=== PATIENT | male | born 1935 | race Caucasian/White ===

== ENCOUNTER 2016-03-06 09:42 | Outpatient (CLI) ==
[2015-01-21 15:44] VITALS: BMI 29.8
[2016-03-06 12:35] LABS: BASOPHILS # (AUTO) 0.1 K/uL (0-0.2); BASOPHILS % (AUTO) 0.5 % (0.0-3.0); EOSINOPHILS # (AUTO) 0.5 K/ul (0.0-0.7); EOSINOPHILS % (AUTO) 4.1 % (0.0-7.0); HEMATOCRIT 29.3 % (42.0-52.0); HEMOGLOBIN 9.2 g/dl (14.0-18.0); IMMATURE GRANULOCYTE % (AUTO) 0.3 % (0.0-5.0); LYMPHOCYTES # (AUTO) 1.7 K/uL (0.60-3.4); LYMPHOCYTES % (AUTO) 15.1 (10.0-50.0); MEAN CORPUSCULAR HEMOGLOBIN 28.6 pg (27.0-31.0); MEAN CORPUSCULAR HGB CONC 31.4 (31.8-35.4); MONOCYTES # (AUTO) 0.6 K/uL (0.4-2.0); MONOCYTES % (AUTO) 4.8 (0-10); NEUTROPHILS # (AUTO) 8.6 K/ul (2.0-6.9); NEUTROPHILS % (AUTO) 75.2; PLATELET COUNT 348 10^3/uL (140-440); RED BLOOD COUNT 3.22 10^6/ul (4.70-6.10); WHITE BLOOD COUNT 11.43 K/ul (4.2-10.2)
[2016-03-06 12:50] LABS: ALBUMIN 3.3 g/dL (3.4-5.0); ALBUMIN/GLOBULIN RATIO 0.8; ANION GAP 15.1; BILIRUBIN,TOTAL 0.34 mg/dL (0.00-1.20); BUN/CREATININE RATIO 14.74; CALCIUM 9.3 mg/dL (8.2-10.2); CHOL/HDL RATIO 4.5 (4.5-6.4); CREATININE 1.56 mg/dL (0.60-1.10); POTASSIUM 5.1 mmol/L (3.5-5.1); TOTAL PROTEIN 7.4 g/dL (5.8-8.1)
[2016-03-06 12:52] LABS: BILIRUBIN,URINE Negative (NEGATIVE); KETONES,URINE Negative (NEGATIVE); LEUKOCYTE ESTERASE ,URINE Negative (NEGATIVE); NITRITE,URINE Positive (NEGATIVE); PROTEIN,URINE Negative (NEGATIVE); URINE, BLOOD Negative (NEGATIVE)
[2016-03-06 12:53] LABS: ADD URINE MICROSCOPIC YES
[2016-03-06 12:57] LABS: BACTERIA,URINE 1+ (NOT PRESENT)
== END 2016-03-06 09:43 | disposition home or self-care (01) ==
LOC: LAB 09:42
PROVIDERS: ATTEND General Practice
DX: I10 Essential (primary) hypertension (principal); M54.5 Low back pain; E78.5 Hyperlipidemia, unspecified; N18.9 Chronic kidney disease, unspecified; Z79.899 Other long term (current) drug therapy
CPT/HCPCS: 36415; 80053; 80061; 81001; 85025; 87086; 87186

== ENCOUNTER 2016-03-15 08:46 | Outpatient (CLI) ==
[2015-01-21 15:44] VITALS: BMI 29.8
[2016-03-15 14:45] LABS: BILIRUBIN,URINE Negative (NEGATIVE); KETONES,URINE Negative (NEGATIVE); LEUKOCYTE ESTERASE ,URINE Negative (NEGATIVE); NITRITE,URINE Negative (NEGATIVE); PROTEIN,URINE Negative (NEGATIVE); URINE, BLOOD Negative (NEGATIVE)
[2016-03-15 14:46] LABS: ADD URINE MICROSCOPIC NO
== END 2016-03-15 08:47 | disposition home or self-care (01) ==
LOC: LAB 08:46
PROVIDERS: ATTEND General Practice
DX: N39.0 Urinary tract infection, site not specified (principal)
CPT/HCPCS: 81001

== ENCOUNTER 2016-07-17 11:50 | Outpatient (CLI) | payer OTHER ==
[2015-01-21 15:44] VITALS: BMI 29.8
[2016-07-17 12:38] LABS: BASOPHILS # (AUTO) 0.1 K/uL (0-0.2); BASOPHILS % (AUTO) 0.4 % (0.0-3.0); EOSINOPHILS # (AUTO) 0.3 K/ul (0.0-0.7); EOSINOPHILS % (AUTO) 2.3 % (0.0-7.0); HEMATOCRIT 30.4 % (42.0-52.0); HEMOGLOBIN 9.6 g/dl (14.0-18.0); IMMATURE GRANULOCYTE % (AUTO) 0.2 % (0.0-5.0); LYMPHOCYTES # (AUTO) 2.4 K/uL (0.60-3.4); LYMPHOCYTES % (AUTO) 16.9 (10.0-50.0); MEAN CORPUSCULAR HEMOGLOBIN 25.1 pg (27.0-31.0); MEAN CORPUSCULAR HGB CONC 31.6 (31.8-35.4); MEAN CORPUSCULAR VOLUME 79.6 fl (80.0-94.0); MONOCYTES # (AUTO) 0.8 K/uL (0.4-2.0); MONOCYTES % (AUTO) 5.3 (0-10); NEUTROPHILS # (AUTO) 10.6 K/ul (2.0-6.9); NEUTROPHILS % (AUTO) 74.9; PLATELET COUNT 273 10^3/uL (140-440); RED BLOOD COUNT 3.82 10^6/ul (4.70-6.10); WHITE BLOOD COUNT 14.21 K/ul (4.2-10.2)
[2016-07-17 12:42] LABS: BILIRUBIN,URINE Negative (NEGATIVE); KETONES,URINE Negative (NEGATIVE); LEUKOCYTE ESTERASE ,URINE Negative (NEGATIVE); NITRITE,URINE Negative (NEGATIVE); PH,URINE 7.5 (5-9); PROTEIN,URINE Negative (NEGATIVE); URINE, BLOOD Negative (NEGATIVE)
[2016-07-17 12:52] LABS: ADD URINE MICROSCOPIC NO
[2016-07-17 13:02] LABS: ALBUMIN 3.8 g/dL (3.4-5.0); ALBUMIN/GLOBULIN RATIO 0.86; ANION GAP 13.6; BILIRUBIN,TOTAL 0.59 mg/dL (0.00-1.20); BUN/CREATININE RATIO 10.73; CALCIUM 9.4 mg/dL (8.2-10.2); CHOL/HDL RATIO 4.6 (4.5-6.4); CREATININE 2.05 mg/dL (0.60-1.10); POTASSIUM 4.6 mmol/L (3.5-5.1); TOTAL PROTEIN 8.2 g/dL (5.8-8.1)
== END 2016-07-17 11:51 | disposition home or self-care (01) ==
LOC: LAB 11:50
PROVIDERS: ATTEND General Practice
DX: E78.5 Hyperlipidemia, unspecified (principal); I10 Essential (primary) hypertension; N18.9 Chronic kidney disease, unspecified; Z79.899 Other long term (current) drug therapy
CPT/HCPCS: 36415; 80053; 80061; 81001; 85025

== ENCOUNTER 2016-08-15 14:49 | Outpatient (RCR) ==
[2015-01-21 15:44] VITALS: BMI 29.8
--- NOTE | 2016-08-15 16:42 | OUTEVAL ---
Date of Service:08/15/16 SUBJECTIVE:Patient reports having difficulty walking. States his has numbness in his feet and as soon as he starts walking, the numbness spreads into his legs and up to his waist. States he has fallen many times at home. He feels that a power mobility device would help him get around at home and make him safer. Reports bilateral shoulder pain and weakness. States he would not be able to propel a manual wheelchair. OBJECTIVE: Range of Motion: UE's: bilateral shoulder abduction 85 degrees, flexion 105 degrees, IR 75 degrees, ER 70 degrees. Elbows 125 degrees flexion, full extension. Wrist WFL' s. Demonstrates full hand and finger AROM. LE's: Right LE hip flexion to 100 degrees, IR to neutral, ER 25 degrees, all else WFL's. Left hip flexion to 110 degrees, IR to neutral, ER 30 degrees, all else WFL's. Right knee -10 degrees from full extension to 100 degrees flexion, Left knee full extension to 105 degrees flexion. Bilateral ankle ROM WFL's. Muscle Strength: Bilateral shoulder strength abduction, ER, flexion 4-/5, IR 4/5, extension and adduction 4+/5. Elbows 4/5, wrist 4-/5. Right LE hip generally 3+ to 4-/5. knee 4-/5, ankle 4-/5. Left LE generally 4/ 5 throughout. Trunk strength is good. Balance: Sitting static and dynamic balance is good. Standing static balance Fair +, dynamic balance Fair -. Sensation: Currently, patient reports numbness in the great toe of both feet. Reports all else currently intact. Gait: Patient ambulates with a cane in department. He demonstrates an unsteady , unsafe gait. Demonstrates inconsistent foot clearance and decreased hip and knee flexion during swing phase. The farther he walks, the more forward flexed his posture becomes. He must sit down to get relief of numbness in his legs after ambulating 20-30 feet. He requires at least CGA to minimal assistance for safety. ASSESSMENT: Mr. Goodman presents to therapy for evaluation of muscle strength and ROM. He demonstrates generalized weakness in his UE and LE's. He reports current numbness in the great toe of both feet and reports this numbness progresses throughout his LE's to his waist with any standing or walking. He and his report he has had several falls inside and outside his home. He presents to be at a high risk for falls. He is a good candidate for a power mobility device to improve his independence and safety in his home. PLAN: No further therapy at this time. Recommend Power Mobility Device for safety in the home. SHAY
== END 2016-09-09 ==
PROVIDERS: ATTEND General Practice
DX: R20.0 Anesthesia of skin (principal); G57.91 Unspecified mononeuropathy of right lower limb; M54.5 Low back pain; M50.90 Cervical disc disorder, unspecified, unspecified cervical region

== ENCOUNTER 2016-10-29 16:56 | Emergency (ER) ==
[2016-10-29 17:06] VITALS: BP 137/68; TEMP 98.3; BMI 31.5
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
--- NOTE | 2016-10-29 18:08 | CT ---
CT cervical spine without contrast HISTORY: Fall with injury and pain TECHNIQUE: CT of the cervical spine with multiplanar reformations. FINDINGS: Reformatted images demonstrate normal alignment with preservation of vertebral body height . Mild multilevel endplate spondylosis. No fracture seen on the axial or reformatted images. No acut e surrounding soft tissue abnormalitites. Lung apices are clear. IMPRESSION: No acute findings in the cervical spine.
== END 2016-10-29 18:48 | disposition home or self-care (01) ==
LOC: ED 16:56
DX: S16.1XXA Strain of muscle, fascia and tendon at neck level, initial encounter (principal); S70.02XA Contusion of left hip, initial encounter; V00.811A Fall from moving wheelchair (powered), initial encounter
CPT/HCPCS: 99283

== ENCOUNTER → 2016-12-17 | Outpatient (POV) ==
[2016-11-07 11:43] VITALS: BMI 31.7
== END ==
LOC: OUTPT 00:01
PROVIDERS: ATTEND Otolaryngology
DX: H91.90 Unspecified hearing loss, unspecified ear (principal)
CPT/HCPCS: 92557; 92567

== ENCOUNTER 2016-12-26 06:57 | Day surgery (SDC) ==
[2016-11-07 11:43] VITALS: BMI 31.7
[2016-12-26] MEDS: CYCLOGYL 2% OPTH OP PRN ×3 (07:40→07:50)
[2016-12-26] MEDS: OCUFEN 0.03% OPTH SOL OP PRN ×3 (07:40→08:10)
[2016-12-26] MEDS: AK-DILATE 10% OPTH SOL OP PRN ×3 (07:40→07:50)
[2016-12-26] MEDS: TETRACAINE 0.5% UNIT-DOSE OP PRN ×3 (07:40→08:10)
[2016-12-26] MEDS ORDERED: VERSED ONE (08:45)
[2016-12-26 14:30] VITALS: BP 126/68; TEMP 97.6
--- NOTE | 2016-12-27 10:14 | OP ---
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 PHACO TIME 82.2 SECONDS AT 7% POWER. LENS MODEL TECNIS [id number]. DIOPTER +23D. TECHNIQUE: CLEAR CORNEA. ANESTHESIA: TOPICAL ANESTHESIA W/ANESTHESIA MONITORING. OPERATIVE REPORT: Topical anesthesia consisting of Tetracaine was applied to the cornea and Xylocaine Methyl Paraben free of MFP was injected intracamerally into the anterior chamber. The patient was then brought into the operating room , prepped and draped in the usual ophthalmic manner. A lid speculum was placed and the operating microscope was used. A paracentesis was made at the 3 o' clock position. A clear corneal incision was made just out to the limbus. The anterior chamber was entered just inside the clear cornea. Viscoelastic was injected into the anterior chamber. A capsulotomy was performed with a bent # 27 gauge needle. Phacoemulsification was then performed in the posterior chamber. After completion of the phacoemulsification, residual cortical material was aspirated with the irrigation-aspiration system. The posterior capsule was polished. Viscoelastic was injected into the anterior and posterior chambers to inflate the capsular bag. Lens were placed via an Unfolder system and stabilized in the bag. Viscoelastic was removed from the anterior chamber. The wound was checked for any leakage. The four sponges were removed from the fornix. Topical antibiotic steroid and nonsteroidal drops were also applied to the cornea. A Bond shield was applied. The patient left the operating room in good condition without any complications. INTRAOPERATIVE MEDICATIONS: Xylocaine Methyl Paraben Free MPF MTDD
== END 2016-12-26 10:00 | disposition home or self-care (01) ==
LOC: SURG 06:57
PROVIDERS: ATTEND Ophthalmology
DX: H25.012 Cortical age-related cataract, left eye (principal); H25.13 Age-related nuclear cataract, bilateral; N40.0 Benign prostatic hyperplasia without lower urinary tract symptoms; Z79.899 Other long term (current) drug therapy

== ENCOUNTER 2017-01-20 06:44 | Day surgery (SDC) ==
[2016-11-07 11:43] VITALS: BMI 31.7
[2017-01-20] MEDS ORDERED: KETOROLAC 0.5% OPTH SOL OP PRN (07:05)
[2017-01-20] MEDS ORDERED: CYCLOGYL 2% OPTH OP PRN (07:05)
[2017-01-20] MEDS ORDERED: VOLTAREN 0.1% OPTH SOL OP PRN (07:05)
[2017-01-20 07:27] LABS: BILIRUBIN,URINE 1+ (NEGATIVE); KETONES,URINE Negative (NEGATIVE); LEUKOCYTE ESTERASE ,URINE 1+ (NEGATIVE); NITRITE,URINE Negative (NEGATIVE); PROTEIN,URINE Negative (NEGATIVE); URINE, BLOOD Negative (NEGATIVE)
[2017-01-20 07:29] LABS: ADD URINE MICROSCOPIC YES
[2017-01-20] MEDS ORDERED: CYCLOGYL 2% OPTH OP ONE ×3 (07:40→07:50)
[2017-01-20] MEDS: TETRACAINE 0.5% UNIT-DOSE OP PRN ×3 (07:40→08:10)
[2017-01-20] MEDS: AK-DILATE 10% OPTH SOL OP PRN ×3 (07:40→07:50)
[2017-01-20] MEDS: OCUFEN 0.03% OPTH SOL OP PRN ×3 (07:40→08:10)
[2017-01-20 07:41] LABS: BACTERIA,URINE 1+ (NOT PRESENT)
[2017-01-20 07:58] LABS: ALBUMIN 3.5 g/dL (3.4-5.0); ANION GAP 13.2; BILIRUBIN,TOTAL 0.44 mg/dL (0.00-1.20); BUN/CREATININE RATIO 15.5; CREATININE 1.87 mg/dL (0.60-1.10); POTASSIUM 5.2 mmol/L (3.5-5.1); URIC ACID 5.5 mg/dL (2.6-7.2)
[2017-01-20] MEDS ORDERED: VERSED ONE (09:25)
[2017-01-20 09:42] VITALS: BP 142/73
[2017-01-20] MEDS: DIAMOX PO STA ×2 (10:00→10:10)
[2017-01-20] MEDS ORDERED: DIAMOX ONE (10:10)
--- NOTE | 2017-01-20 13:24 | OP ---
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 POSTOPERATIVE DIAGNOSIS: SAME. COMPLEX CATARACT EXTRACTION. OPERATION PHACOEMULSIFICATION ASPIRATION OF CATARACT RIGHT EYE. PLACEMENT OF POSTERIOR CHAMBER LENS. PHACO TIME 0:52.3 SECONDS AT 5% POWER. LENS MODEL MUKESH [id number]. DIOPTER +22.5D. TECHNIQUE: CLEAR CORNEA. ANESTHESIA: TOPICAL ANESTHESIA W/ANESTHESIA MONITORING. OPERATIVE REPORT: Topical anesthesia consisting of Tetracaine was applied to the cornea and Xylocaine Methyl Paraben free of MFP was injected intracamerally into the anterior chamber. The patient was then brought into the operating room , prepped and draped in the usual ophthalmic manner. A lid speculum was placed and the operating microscope was used. A paracentesis was made at the 3 o' clock position. A clear corneal incision was made just out to the limbus. The anterior chamber was entered just inside the clear cornea. Viscoelastic was injected into the anterior chamber. A capsulotomy was performed with a bent # 27 gauge needle. Phacoemulsification was then performed in the posterior chamber. After completion of the phacoemulsification, residual cortical material was aspirated with the irrigation-aspiration system. The posterior capsule was polished. Viscoelastic was injected into the anterior and posterior chambers to inflate the capsular bag. Lens were placed via an Unfolder system and stabilized in the bag. Viscoelastic was removed from the anterior chamber. The wound was checked for any leakage. The four sponges were removed from the fornix. Topical antibiotic steroid and nonsteroidal drops were also applied to the cornea. A Bond shield was applied. The patient left the operating room in good condition without any complications. INTRAOPERATIVE MEDICATIONS: Xylocaine Methyl Paraben Free MPF MTDD
[2017-01-21 08:50] LABS: HEMATOCRIT 39.7 % (42.0-52.0); HEMOGLOBIN 12.2 g/dl (14.0-18.0); MEAN CORPUSCULAR HEMOGLOBIN 29.5 pg (27.0-31.0); MEAN CORPUSCULAR HGB CONC 30.7 (31.8-35.4); MEAN CORPUSCULAR VOLUME 96.1 fl (80.0-94.0); RED BLOOD COUNT 4.13 10^6/ul (4.70-6.10); WHITE BLOOD COUNT 8.16 K/ul (4.2-10.2)
[2017-01-21 09:37] LABS: URINE CREATININE 281.6 mg/dL (Not Estab.); URINE MALB/CR RATIO 5.6 mg/g creat (0.0-30.0)
== END 2017-01-20 10:05 | disposition home or self-care (01) ==
LOC: SURG 06:44
PROVIDERS: ATTEND Ophthalmology
DX: H25.11 Age-related nuclear cataract, right eye (principal); H25.011 Cortical age-related cataract, right eye; N18.3 Chronic kidney disease, stage 3 (moderate); Z96.1 Presence of intraocular lens; Z79.899 Other long term (current) drug therapy
CPT/HCPCS: 36415; 80053; 81001; 82043; 82306; 83970; 84550; 85027

== ENCOUNTER 2017-02-27 09:52 | Emergency (ER) | payer OTHER ==
[2017-02-27 09:56] VITALS: BP 170/89; TEMP 97.6; BMI 32.3
--- NOTE | 2017-02-27 12:38 | ED.PDOC ---
General ED Provider: Dr. COREEN EWING Chief Complaint: Nausea/Vomiting Stated Complaint: Onset this Am after arising and walking in to kitchen to check his BP. Denied dizziness or LOC Time Seen by Physician: 11:30 Mode of Arrival: Wheelchair Information Source: Patient Exam Limitations: No limitations [facility] and T[facility] Documentation Reviewed and Agree: Yes Reviewed sepsis parameters & appropriate labs ordered?: Yes System Inflammatory Response Syndrome: Not Applicable Sepsis Protocol: For patient's 13 years and over: Temp is 96.8 and below OR 101 and greater Pulse >90 BPM Resp >20/minute Acutely Altered Mental Status Are patient's symptoms suggestive of a new infection, such as: -Pneumonia -Skin, Soft Tissue -Endocarditis -UTI -Bone, Joint Infection -Implantable Device -Acute Abdominal Infection -Wound Infection -Meningitis -Blood Stream Catheter Infection -Unknown System Inflammatory Response Syndrome: Not Applicable GI Complaint Exam - Vomiting/Diarrhea Complaint/Exam Symptoms Are: Resolved Initial Severity: Mild Current Severity: None Character of Vomiting: Reports: Non-bilious Aggravating: Reports: None, Movement (hx gastritis and takes med) Alleviating: Reports: None Associated Signs and Symptoms: Reports: Light-headedness. Denies: Dizziness, Melena, Abdominal pain, Cramping Related History: Reports: Similar episode Non-GI Risk Factors: Reports: None Surgical Obstruction Risk Factors: Reports: None Related Surgical History: Reports: None Abdominal Findings: Present: None Kussmaul Respirations Present: No Differential Diagnoses: Other (gastritis) Review of Systems - Review Of Systems Constitutional: Reports: No symptoms Eyes: Reports: Previous injury Ears, Nose, Mouth, Throat: Reports: No symptoms Respiratory: Reports: No symptoms Cardiac: Reports: No symptoms GI: Reports: Vomiting : Reports: No symptoms Musculoskeletal: Reports: No symptoms Skin: Reports: No symptoms Neurological: Reports: No symptoms Endocrine: Reports: No symptoms Hematologic/Lymphatic: Reports: No symptoms All Other Systems: Reviewed and Negative Past Medical History - Past Medical History Previously Healthy: Yes Endocrine: Reports: None Cardiovascular: Reports: Hypertension Respiratory: Reports: None Hematological: Reports: None Gastrointestinal: Reports: GERD Genitourinary: Reports: CKD Neuro/Psych: Reports: None Musculoskeletal: Reports: Other (degen disk dz of lumbar spine) Cancer: Reports: None - Surgical History General Surgical History: Reports: None - Family History Family History: Reports: Unknown - Social History Smoking Status: Former smoker Hx Substance Use: No Alcohol Screening: None - Immunizations Influenza Vaccine within 12 Months: No Pneumococcal Vaccine up to Date: No Physical Exam - Physical Exam Appearance: Well-appearing Critical Care Note - Critical Care Note Total Time (mins): 0 Course - Course Hematology/Chemistry: 02/27/17 12:45 02/27/17 12:45 Orders, Labs, Meds: Lab Review 02/27/17 02/27/17 12:45 12:45 WBC 10.01 RBC 4.39 L Hgb 13.3 L Hct 39.4 L MCV 89.7 MCH 30.3 MCHC 33.8 RDW Coeff of Lan 13.4 Plt Count 215 Immature Gran % (Auto) 0.4 Neut % (Auto) 83.3 Lymph % (Auto) 10.6 Cuming % (Auto) 4.7 Eos % (Auto) 0.8 Baso % (Auto) 0.2 Immature Gran # (Auto) 0.0 Neut # 8.3 H Lymph # 1.1 Cuming # 0.5 Eos # 0.1 Baso # 0.0 Sodium 139 Potassium 4.5 Chloride 104 Carbon Dioxide 17 L Anion Gap 22.5 BUN 20 H Creatinine 1.30 H Estimated GFR (MDRD) 53.00 BUN/Creatinine Ratio 15.38 Glucose 111 Calcium 10.1 Total Bilirubin 0.7 AST 17 ALT 13 Alkaline Phosphatase 74 Total Protein 7.8 Albumin 4.4 Globulin 3.4 Albumin/Globulin Ratio 1.29 Lipase 36 Orders Category Date Time Status EKG-(ED ONLY) Stat CARDIO 02/27/17 12:40 Completed CBC W/ AUTO DIFF Stat LAB 02/27/17 12:45 Completed CMP [COMPREHENSIVE METABOLIC PANEL] Stat LAB 02/27/17 12:45 Completed LIPASE Stat LAB 02/27/17 12:45 Completed Vital Signs: Temp Pulse Resp BP Pulse Ox 02/27/17 09:52 97.6 F 87 20 170/89 H 98 Departure - Departure Time of Disposition: 13:45 Disposition: HOME SELF-CARE Discharge Problem: Gastritis, Vomiting, Hypertension Instructions: Gastritis (ED) Condition: Good Pt referred to PMD for follow-up: Yes (further eval and tx/remain on current meds) IPMP verified?: No Additional Instructions: Patient expressed hunger;Provided food tray at 1230 hrs and tolerated well Allergies/Adverse Reactions: Allergies No Known Drug Allergies Allergy (Verified 02/27/17 09:57) Home Medications: Ambulatory Orders Gabapentin 100 mg PO TID 08/11/14 Losartan Potassium 50 mg PO BID 08/11/14 Tamsulosin HCl 0.4 mg PO DAILY 08/11/14
== END 2017-02-27 14:00 | disposition home or self-care (01) ==
LOC: ED 09:52
DX: K29.70 Gastritis, unspecified, without bleeding (principal); I10 Essential (primary) hypertension; R42 Dizziness and giddiness
CPT/HCPCS: 36415; 80053; 83690; 85025; 93005; 93010; 99285

== ENCOUNTER 2017-07-14 09:33 | Outpatient (CLI) | END 2017-07-14 09:34 | disposition home or self-care (01) | LOC: FCC-LAB 09:33 | PROVIDERS: ATTEND General Practice | DX: E78.5 Hyperlipidemia, unspecified (principal); I10 Essential (primary) hypertension; N18.3 Chronic kidney disease, stage 3 (moderate); E61.1 Iron deficiency; N40.0 Benign prostatic hyperplasia without lower urinary tract symptoms; G57.91 Unspecified mononeuropathy of right lower limb; Z79.899 Other long term (current) drug therapy; Z12.5 Encounter for screening for malignant neoplasm of prostate | CPT/HCPCS: 36415; 80053; 80061; 81001; 85025; 87086 ==

== ENCOUNTER 2017-10-14 16:11 | Outpatient (CLI) | payer OTHER | END 2017-10-14 16:12 | disposition home or self-care (01) | LOC: RHC-LAB 16:11 | PROVIDERS: ATTEND Otolaryngology | DX: H66.90 Otitis media, unspecified, unspecified ear (principal); H92.12 Otorrhea, left ear | CPT/HCPCS: 87070; 87186 ==

== ENCOUNTER 2017-10-27 12:43 | Outpatient (CLI) | END 2017-10-27 12:44 | disposition home or self-care (01) | LOC: FCC-LAB 12:43 | PROVIDERS: ATTEND General Practice | DX: E78.5 Hyperlipidemia, unspecified (principal); Z79.899 Other long term (current) drug therapy; Z12.5 Encounter for screening for malignant neoplasm of prostate | CPT/HCPCS: 36415; 80053; 80061; 81001; 85025 ==

== ENCOUNTER 2018-02-09 09:13 | Inpatient (IN) ==
[2018-02-09] MEDS ORDERED: DUONEB NEB STA (09:37)
--- NOTE | 2018-02-09 10:23 | CT ---
EXAM: CT chest without contrast. HISTORY: Cough. Shortness of breath. COMPARISON: Radiograph 11/06/2016. CT 01/18/2015. TECHNIQUE: Multiple axial images of the chest were obtained without intravenous contrast. Images we re reformatted in the sagittal and coronal planes. FINDINGS: Evaluation for lymphadenopathy is limited by lack of intravenous contrast. Pretracheal ly mph node measures 1.5 cm short axis on axial image 22. Additional mediastinal lymph nodes present. Heart is mildly enlarged. ATherosclerotic calcifications present. No pericardial effusion identifie d. Ground-glass opacities seen in both lungs with upper lobe cystic change and mild bronchiectasis, stab le since 2014.. No consolidation, pleural effusion or pneumothorax identified. Calcified granulomat ous changes present. AP diameter of the trachea is narrowed, and there are lobular filling defects n ear the jocelynn. Moderate sized hiatal hernia noted. Degenerative changes are seen in the spine. IMPRESSION: 1. No pneumonia. 2. Stable chronic interstitial changes, greatest in the upper lobes, and mediastinal lymphadenopathy since 2014. 3. 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
--- NOTE | 2018-02-09 10:24 | ED.PDOC ---
General ED Provider: Dr. SELENA BOWENS Chief Complaint: Respiratory Complaint Stated Complaint: flu like symptoms Time Seen by Physician: 09:20 Mode of Arrival: Wheelchair Information Source: Patient Exam Limitations: No limitations [facility] and Triage Documentation Reviewed and Agree: Yes Does patient meet sepsis criteria?: No If yes, has appropriate treatment been initiated?: No System Inflammatory Response Syndrome: Not Applicable Sepsis Protocol: For patient's 13 years and over: Temp is 96.8 and below OR 101 and greater Pulse >90 BPM Resp >20/minute Acutely Altered Mental Status Are patient's symptoms suggestive of a new infection, such as: -Pneumonia -Skin, Soft Tissue -Endocarditis -UTI -Bone, Joint Infection -Implantable Device -Acute Abdominal Infection -Wound Infection -Meningitis -Blood Stream Catheter Infection -Unknown Respiratory Complaint Exam - Respiratory Complaint/Exam Symptoms Are: Still present Timing: Intermittent Initial Severity: Mild Current Severity: Mild Location: Nose, Throat, Chest Character: Reports: Non-productive cough Aggravating: Reports: None Associated Signs and Symptoms: Reports: Wheezing, URI, Nasal congestion. Denies : Rapid breathing, Dyspnea, Fever, Chills, Chest pain, Pleuritic chest pain, Hemoptysis, Dizziness, Calf pain, Calf swelling, Edema, Hoarseness, Sinus discomfort, Vomiting, Sore throat, Weight loss, Decreased oral intake, Increased thirst, Increased appetite, Increased urination Related History: Reports: Similar episode History of Healthcare-Acquired Pneumonia: No Related Surgical History: Reports: None Pulmonary Embolism Risk Factors: None Cardiac Risk Factors: Reports: None Pseudomonas Risk Factors: Reports: None Tuberculosis Risk Factors: Reports: None Status Asthmaticus Risk Factors: Reports: None Home Oxygen Use: No Recent Stress Test: No Recent Echo/LV Function: No Current Antibiotic Use: No Current Asthma Medication Use: No Respiratory Distress: None Inadequate Respiratory Effort: No Dysphagia Present: No Stridor Present: No JVD Present: No Accessory Muscle Use: No Retractions: Not Present Diminished Breath Sounds: No Sinus Tenderness: None Differential Diagnoses: Asthma, Pneumonia, Bronchitis, URI, Influenza, Lower Resp. Infection Review of Systems - Review Of Systems Constitutional: Reports: Chills, Malaise Eyes: Reports: No symptoms Ears, Nose, Mouth, Throat: Reports: No symptoms Respiratory: Reports: Cough, Wheezing Cardiac: Reports: No symptoms GI: Reports: No symptoms : Reports: No symptoms Musculoskeletal: Reports: No symptoms Skin: Reports: No symptoms Neurological: Reports: No symptoms Endocrine: Reports: No symptoms Hematologic/Lymphatic: Reports: No symptoms All Other Systems: Reviewed and Negative Past Medical History - Past Medical History Previously Healthy: Yes Endocrine: Reports: None Cardiovascular: Reports: Hypertension Respiratory: Reports: None Hematological: Reports: None Gastrointestinal: Reports: GERD Genitourinary: Reports: CKD Neuro/Psych: Reports: None Musculoskeletal: Reports: Other (degen disk dz of lumbar spine) Cancer: Reports: None - Surgical History General Surgical History: Reports: None - Family History Family History: Reports: Unknown - Social History Smoking Status: Former smoker Hx Substance Use: No Alcohol Screening: None - Immunizations Influenza Vaccine within 12 Months: No Pneumococcal Vaccine up to Date: No Physical Exam - Physical Exam Appearance: Ill-appearing Ill-appearing: Mild Eyes: FABI, EOMI, Conjunctiva clear ENT: Ears normal, Nose normal, Oropharynx normal Respiratory: Rhonchi Cardiovascular: RRR, Pulses normal, No rub, No murmur GI/: Soft, Nontender, No masses, Bowel sounds normal, No Organomegaly Musculoskeletal: Normal strength, ROM intact, No edema, No calf tenderness Skin: Warm, Dry, Normal color Neurological: Sensation intact, Motor intact, Reflexes intact, Cranial nerves intact, Alert, Oriented Psychiatric: Affect appropriate, Mood appropriate Critical Care Note - Critical Care Note Total Time (mins): 0 Course - Course Hematology/Chemistry: 02/09/18 09:53 02/09/18 09:53 Orders, Labs, Meds: Lab Review 02/09/18 02/09/18 02/09/18 09:36 09:53 09:53 WBC 14.01 H RBC 3.62 L Hgb 10.9 L Hct 33.4 L MCV 92.3 MCH 30.1 MCHC 32.6 RDW Coeff of Lan 13.2 Plt Count 203 Immature Gran % (Auto) 0.4 Neut % (Auto) 83.0 Lymph % (Auto) 7.9 L Parker % (Auto) 5.8 Eos % (Auto) 2.7 Baso % (Auto) 0.2 Immature Gran # (Auto) 0.1 Neut # (Auto) 11.6 H Lymph # (Auto) 1.1 Parker # (Auto) 0.8 Eos # (Auto) 0.4 Baso # (Auto) 0.0 PT INR APTT D-Dimer (Manual) Puncture Site Rrad O2 Saturation 91.0 L ABG pH 7.351 ABG pCO2 39.4 ABG pO2 63.0 L ABG HCO3 21.9 L ABG Total CO2 23 ABG Base Excess -4 L Zen Test + FiO2 % 21.0 Sodium 134.7 Potassium 5.21 H Chloride 102.9 Carbon Dioxide 25.0 Anion Gap 12.01 BUN 33.5 H Creatinine 2.51 H Estimated GFR (MDRD) 25.00 BUN/Creatinine Ratio 13.34 Glucose 129.4 H Lactic Acid Calcium 8.75 Total Bilirubin 0.43 AST 17.9 ALT 16.5 Alkaline Phosphatase 64.8 Total Protein 7.57 Albumin 4.07 Globulin 3.50 Albumin/Globulin Ratio 1.16 Procalcitonin 02/09/18 02/09/18 02/09/18 09:53 09:53 09:53 WBC RBC Hgb Hct MCV MCH MCHC RDW Coeff of Lan Plt Count Immature Gran % (Auto) Neut % (Auto) Lymph % (Auto) Parker % (Auto) Eos % (Auto) Baso % (Auto) Immature Gran # (Auto) Neut # (Auto) Lymph # (Auto) Parker # (Auto) Eos # (Auto) Baso # (Auto) PT 9.8 INR 0.98 APTT 25.2 D-Dimer (Manual) Puncture Site O2 Saturation ABG pH ABG pCO2 ABG pO2 ABG HCO3 ABG Total CO2 ABG Base Excess Zen Test FiO2 % Sodium Potassium Chloride Carbon Dioxide Anion Gap BUN Creatinine Estimated GFR (MDRD) BUN/Creatinine Ratio Glucose Lactic Acid 1.03 Calcium Total Bilirubin AST ALT Alkaline Phosphatase Total Protein Albumin Globulin Albumin/Globulin Ratio Procalcitonin 0.11 02/09/18 09:53 WBC RBC Hgb Hct MCV MCH MCHC RDW Coeff of Lan Plt Count Immature Gran % (Auto) Neut % (Auto) Lymph % (Auto) Parker % (Auto) Eos % (Auto) Baso % (Auto) Immature Gran # (Auto) Neut # (Auto) Lymph # (Auto) Parker # (Auto) Eos # (Auto) Baso # (Auto) PT INR APTT D-Dimer (Manual) 791.07 Puncture Site O2 Saturation ABG pH ABG pCO2 ABG pO2 ABG HCO3 ABG Total CO2 ABG Base Excess Zen Test FiO2 % Sodium Potassium Chloride Carbon Dioxide Anion Gap BUN Creatinine Estimated GFR (MDRD) BUN/Creatinine Ratio Glucose Lactic Acid Calcium Total Bilirubin AST ALT Alkaline Phosphatase Total Protein Albumin Globulin Albumin/Globulin Ratio Procalcitonin Orders Category Date Time Status ABG DRAW REQUEST Stat CARDIO 02/09/18 09:36 Completed EKG-(ED ONLY) Stat CARDIO 02/09/18 09:36 Completed NEBULIZER TREATMENT Stat CARDIO 02/09/18 09:37 Completed NPO REMINDER: IMAGING ONCE CARE 02/09/18 11:45 Active ED IV/MEDIPORT/POWERPORT .ONCE EMERGENCY 02/09/18 09:36 Active ABG Stat LAB 02/09/18 09:36 Completed BLOOD CULTURE (ED ONLY) Stat LAB 02/09/18 09:53 Received CBC W/ AUTO DIFF Stat LAB 02/09/18 09:53 Completed COMPREHENSIVE METABOLIC PANEL Stat LAB 02/09/18 09:53 Completed D-DIMER Stat LAB 02/09/18 09:53 Completed FLU A/B MOLECULAR Stat LAB 02/09/18 11:53 Uncollected LACTIC ACID Stat LAB 02/09/18 09:53 Completed MOLECULAR GROUP A STREP Stat LAB 02/09/18 11:53 Uncollected PARTIAL THROMBOPLASTIN TIME Stat LAB 02/09/18 09:53 Completed PROCALCITONIN Stat LAB 02/09/18 09:53 Completed PT WITH INR Stat LAB 02/09/18 09:53 Completed RSV Stat LAB 02/09/18 11:54 Uncollected 0.9 % Sodium Chloride [Saline Flush] MEDS 02/09/18 09:36 Active 1 syr IVF PRN PRN 0.9 % Sodium Chloride [Saline Flush] MEDS 02/09/18 11:45 Active 1 syr IVF PRN PRN Ipratropium/Albuterol Neb [Duoneb] MEDS 02/09/18 09:37 Discontinued 1 vial NEB ONCE STA Sodium Chloride 0.9% [Sodium Chloride] 1,000 ml MEDS 02/09/18 11:45 Active IV 125 mls/hr CT CHEST W/O CONTRAST Stat RADS 02/09/18 09:36 Completed U/S VENOUS SCAN FELECIA LEGS Stat RADS 02/09/18 11:46 Ordered Medications Generic Name Dose Route Start Last Admin Trade Name Freq PRN Reason Stop Dose Admin Sodium Chloride 1,000 mls @ 125 mls/hr 02/09/18 11:45 Sodium Chloride IV 02/09/18 19:44 .Q8H STA Sodium Chloride 1 syr 02/09/18 09:36 Saline Flush IVF PRN PRN To flush IV Sodium Chloride 1 syr 02/09/18 11:45 Saline Flush IVF PRN PRN To flush IV Discontinued Medications Generic Name Dose Route Start Last Admin Trade Name Freq PRN Reason Stop Dose Admin Albuterol/Ipratropium 1 vial 02/09/18 09:37 02/09/18 09:46 Duoneb NEB 02/09/18 09:38 1 vial ONCE STA Administration Vital Signs: Temp Pulse Resp BP Pulse Ox 02/09/18 09:15 99.1 F 110 H 20 94/58 L 91 L Departure - Departure Time of Disposition: 10:24 Disposition: HOME SELF-CARE Discharge Problem: Viral syndrome Instructions: Viral Syndrome (ED) Condition: Good Pt referred to PMD for follow-up: Yes IPMP verified?: No Allergies/Adverse Reactions: Allergies No Known Drug Allergies Allergy (Verified 02/09/18 09:22) Home Medications: Ambulatory Orders Gabapentin 100 mg PO TID 08/11/14 Losartan Potassium 50 mg PO BID 08/11/14 Tamsulosin HCl 0.4 mg PO DAILY 08/11/14
[2018-02-09] MEDS ORDERED: SODIUM CHLORIDE 1,000 ML IV STA (11:45)
--- NOTE | 2018-02-09 12:43 | US ---
EXAM: Bilateral lower extremity venous doppler. HISTORY: Bilateral lower extremity swelling. Elevated D-dimer. COMPARISON: 11/07/2016. TECHNIQUE: A duplex Doppler study was performed consisting of integrated two dimensional (2D) real-t nav imaging color flow Doppler and Doppler spectral analysis utilizing linear array probes. FINDINGS: There is normal flow, venous waveforms, compressibility and augmentation of flow within th e right and left common femoral, greater saphenous, profunda, femoral, popliteal, posterior tibial, a nterior tibial and peroneal veins. IMPRESSION: No evidence for right or left lower extremity deep vein thrombosis at the levels examined.
[2018-02-09] MEDS ORDERED: PRILOSEC PO PRN (13:03)
[2018-02-09] MEDS ORDERED: NORCO 5-325 PO PRN (13:03)
[2018-02-09] MEDS ORDERED: SOLU-MEDROL 125 MG IVP STA (13:04)
[2018-02-09 14:10] VITALS: BMI 33.2
[2018-02-09] MEDS ORDERED: MUCINEX PO SCH (15:00)
[2018-02-09] MEDS: NEURONTIN PO SCH ×2 (15:05→20:19)
[2018-02-09] MEDS: AVELOX 400 MG in PREMIX 250 ML NS 1 BAG IV SCH (16:02)
[2018-02-09] MEDS ORDERED: DUONEB NEB SCH (18:00)
[2018-02-09] MEDS ORDERED: SOLU-CORTEF 250 MG IVP SCH ×2 (18:00)
[2018-02-09] MEDS: SOLU-CORTEF 100 MG IVP SCH ×2 (18:02→23:22)
[2018-02-09] MEDS: DUONEB NEB SCH (20:00)
[2018-02-09] MEDS: COZAAR PO SCH (20:19)
[2018-02-09] MEDS: MUCINEX PO SCH (20:20)
[2018-02-09] MEDS ORDERED: NON-FORMULARY MEDICATION (Losartan Potassium [Losartan Potassium] 50 MG) PO SCH (21:00)
[2018-02-10] MEDS: SODIUM CHLORIDE 1,000 ML IV SCH ×2 (03:20→04:41)
[2018-02-10] MEDS: DUONEB NEB SCH (05:15)
[2018-02-10] MEDS: SOLU-CORTEF 100 MG IVP SCH (05:17)
[2018-02-10] MEDS ORDERED: PROTONIX PO PRN (07:43)
[2018-02-10] MEDS: AVELOX 400 MG in PREMIX 250 ML NS 1 BAG IV SCH (08:40)
[2018-02-10] MEDS: MUCINEX PO SCH ×2 (08:40→21:42)
[2018-02-10] MEDS: FLOMAX PO SCH (08:40)
[2018-02-10] MEDS: COZAAR PO SCH ×2 (08:41→21:42)
[2018-02-10] MEDS: NEURONTIN PO SCH ×3 (08:42→21:43)
[2018-02-10] MEDS ORDERED: NON-FORMULARY MEDICATION (Hydrochlorothiazide [Hydrochlorothiazide] 12.5 MG) PO SCH (09:00)
[2018-02-10] MEDS ORDERED: HYDROCHLOROTHIAZIDE PO SCH (09:00)
[2018-02-10] MEDS ORDERED: POTASSIUM CHLORIDE IV SCH (10:00)
[2018-02-10] MEDS ORDERED: INFUVITE ADULT IV SCH (10:00)
[2018-02-10] MEDS ORDERED: [UNRECOGNIZED DRUG - OTHER] IV SCH (10:00)
[2018-02-10] MEDS: LOPRESSOR PO SCH ×2 (10:06→21:42)
[2018-02-10] MEDS ORDERED: INFUVITE ADULT IV ONE ×2 (10:11→22:07)
[2018-02-10] MEDS: LOVENOX SUBCUT SCH (10:15)
[2018-02-10] MEDS ORDERED: POTASSIUM CHLORIDE 10 MEQ VIAL IV ONE (10:22)
[2018-02-10] MEDS: INFUVITE ADULT 10 ML in D5%-1/2NS-KCL 20 MEQ/L IV SOL 1,000 ML IV SCH ×2 (10:24→23:10)
--- NOTE | 2018-02-10 11:19 | DI ---
EXAM: CHEST FRONTAL AND LATERAL VIEWS HISTORY: Shortness of breath. COMPARISON: 11/06/2016 FINDINGS: Stable cardiomegaly. There is at least mild atherosclerotic disease. Patient positioning and suboptimal lung volumes limit the evaluation although there appears to be mild pulmonary vascula r congestion and patchy bibasilar densities. There is no visible pleural fluid or pneumothorax IMPRESSION: 1. Cardiomegaly and mild pulmonary vascular congestion. Patchy bibasilar densities may represent at electasis or pneumonia or be secondary to the congestion. Correlate clinically. Similar picture see n previously.
[2018-02-11] MEDS: LOPRESSOR PO SCH ×2 (08:42→20:05)
[2018-02-11] MEDS: NEURONTIN PO SCH ×3 (08:42→20:05)
[2018-02-11] MEDS: MUCINEX PO SCH ×2 (08:42→20:05)
[2018-02-11] MEDS: COZAAR PO SCH ×2 (08:43→20:04)
[2018-02-11] MEDS: FLOMAX PO SCH (08:43)
[2018-02-11] MEDS: LASIX IVP SCH (08:44)
[2018-02-11] MEDS: LOVENOX SUBCUT SCH (08:45)
[2018-02-11] MEDS: AVELOX 400 MG in PREMIX 250 ML NS 1 BAG IV SCH (11:18)
[2018-02-11] MEDS: INFUVITE ADULT 10 ML in D5%-1/2NS-KCL 20 MEQ/L IV SOL 1,000 ML IV SCH ×2 (13:17→23:48)
[2018-02-12] MEDS: LASIX IVP SCH (06:28)
[2018-02-12] MEDS: COZAAR PO SCH ×2 (08:11→20:24)
[2018-02-12] MEDS: FLOMAX PO SCH (08:11)
[2018-02-12] MEDS: MUCINEX PO SCH ×2 (08:12→20:24)
[2018-02-12] MEDS: LOPRESSOR PO SCH (08:12)
[2018-02-12] MEDS: NEURONTIN PO SCH ×3 (08:12→20:24)
[2018-02-12] MEDS: LOVENOX SUBCUT SCH (08:13)
[2018-02-12] MEDS: DECADRON 4 MG/ML SDV IM SCH (09:22)
[2018-02-12] MEDS: AVELOX 400 MG in PREMIX 250 ML NS 1 BAG IV SCH (09:22)
[2018-02-12] MEDS: COREG PO SCH ×2 (10:24→16:39)
--- NOTE | 2018-02-12 11:00 | ECHO2D ---
Date of Exam: 02/10/18 Ordering Physician: DR. CARLOS MORENO Room #: 112 Reason for Echo: HX HTN, CHF, SOB M-Mode Normal Adult Results LV Dimensions Normal Adult Results AoV Opening excursions >1.6 >1.6 LVEDD-base- 3.5-5.8 4.7 Ao root dimensions 2.0-3.7 3.8 LVESD-base- 3.1-4.6 L. Atrium dimensions 1.9-3.8 4.0 Post. Wall thickness 0.8-1.1 1.2 IV septum (thickness) 0.7-1.2 1.2 Post. Wall excursion 0.72-1.3 NORMAL Septal motion NORMAL Systolic motion R. Ventricular cavity 1.5-2.0 NORMAL LVEF 60% 63% Paradoxical septal wall motion NORMAL 2-D : 2-D M Mode Echocardiogram was performed using apical four chamber and left parasternal long and short axis views. Mitral, tricuspid and aortic valves appear to be normal. Contractility of the left ventricle seems to be normal, so is the cavity size. Left atrial cavity size and aortic root appear to be normal. There is no pericardial effusion. There is no thrombus noted in the left ventricular or left aortic cavity. No mitral valve prolapse noted. COLOR FLOW: MODERATE AORTIC REGURGITATION M-MODE: MV: NORMAL AV: CALCIFIC AORTIC VALVE--GOOD SEPARATION OF LEAFLETS TV: NORMAL PV: NORMAL CHAMBER SIZE: NORMAL WALL MOTION: NORMAL PERICARDIUM: NORMAL INTERPRETATION: 1. BORDERLINE LEFT VENTRICULAR HYPERTROPHY 2. NORMAL LEFT VENTRICULAR CONTRACTILITY 3. MODERATE AORTIC REGURGITATION, CALCIFIC AORTIC VALVES MTDD
[2018-02-13] MEDS: LASIX IVP SCH (06:04)
[2018-02-13] MEDS: COREG PO SCH (08:33)
[2018-02-13] MEDS: FLOMAX PO SCH (08:34)
[2018-02-13] MEDS: COZAAR PO SCH (08:34)
[2018-02-13] MEDS: NEURONTIN PO SCH ×2 (08:34→15:11)
[2018-02-13] MEDS: MUCINEX PO SCH (08:35)
[2018-02-13] MEDS: DECADRON 4 MG/ML SDV IM SCH (08:36)
[2018-02-13] MEDS: LOVENOX SUBCUT SCH (08:38)
[2018-02-13] MEDS ORDERED: COREG PO SCH (09:00)
[2018-02-13] MEDS ORDERED: AVELOX PO SCH (09:00)
--- NOTE | 2018-02-13 09:44 | CONS ---
DATE OF CONSULTATION: 02/10/18 HISTORY OF PRESENT ILLNESS: 82-year-old white male hospitalized on 02/09/18 through the emergency room with flu type of symptoms. The patient had bronchitis, cough and congestion. He also had bilateral leg swelling. The patient on chest x-ray showed cardiomegaly with mild vascular congestion, patchy infiltration indicating possibility of pneumonitis. His vitals in the emergency room with temperature of 99, pulse 110 , respiratory rate 20, blood pressure 94/58 with 91% saturation. ABG showed p02 of 63, pc02 39, pH 7.35 with 91% saturation on room air. The patient's CK-MB was 2.6 which was mildly elevated. I was consulted to make sure that the patient didn't have any acute myocardial event. REVIEW OF SYSTEMS: CONSTITUTIONAL: No night sweats. No fatigue, malaise, lethargy. No fever or chills. HEENT: Eyes: No visual changes. No eye pain. No eye discharge. ENT: No sinus drainage. No epistaxis. No sinus pain. No sore throat. No odynophagia. No ear pain. No congestion. RESPIRATORY: Mild cough and congestion. No hemoptysis. Shortness of breath on exertion which has improved within 24 hours. CARDIOVASCULAR: No angina symptoms. No CHF symptoms. No atypical chest pain for CAD. No palpitations. No PND, no orthopnea. GASTROINTESTINAL: No abdominal pain. No nausea or vomiting. No diarrhea or constipation. No hematemesis. No hematochezia. GENITOURINARY: No urgency. No frequency. No dysuria. No hematuria. No obstructive symptoms. No discharge. No pain. No significant abnormal bleeding. MUSCULOSKELETAL: No musculoskeletal pain. No joint swelling. NEUROLOGICAL: No headache. No neck pain. No syncope. No seizures. No dizziness. PSYCHIATRIC: Not anxious. No depression. No suicidal thoughts. No homicidal thoughts. SKIN: No rash. No lesions. No wounds. ENDOCRINE: No unexplained weight loss. No weight gain. HEMATOLOGIC/LYMPHATIC: No anemia. No purpura. No petechiae. No prolonged or excessive bleeding. No palpable lymph nodes. MEDICATIONS: Hydrocodone Gabapentin Hydrochlorothiazide Losartan Metoprolol Pantoprazole Tamsulosin ALLERGIES: NKDA PAST MEDICAL HISTORY: Chronic lung disease DJD spine Neuropathy Irregular heartbeat Bronchitis CKD Hallucinations GERD PAST SURGICAL HISTORY: Bilateral cataract removal S/P Hernia repair S/P Hemorrhoidectomy SOCIAL/PERSONAL/FAMILY HISTORY: The patient's is sitting in the room. The patient smoked for 20 years, quit 30 years ago. No alcohol abuse. Code status: The patient is DNR. PHYSICAL EXAMINATION: GENERAL: Looks somewhat pale. VITAL SIGNS: Temperature 98, pulse 80, respiratory rate 15, BP 120/60, pulse ox 96% on room air. HEENT: Head normocephalic, atraumatic. Eyes: Extraocular muscles are intact. Pupils are equal, round and reactive to light and accommodation. Ears: No lesions. Nose appeared normal. Throat: No exudate or erythema. NECK: Supple. No JVD, no carotid bruit. No lymphadenopathy or thyromegaly. LUNGS: Decreased breath sounds with good air entry. Very few wheezes noted. Percussion note normal. Chest symmetrical. HEART: PMI not palpable. Increased AP diameter of the chest. S1, S2, no S3. No murmur appreciated. No cyanosis or clubbing. No ascites. Pulses: Dorsalis pedis and posterior tibial pulses +1 bilaterally. ABDOMEN: Soft. No ascites. Nontender. Bowel sounds active. No CVA tenderness. No mass felt. EXTREMITIES: Trace pedal edema. Full range of motion of all extremities, equal. NEUROLOGIC: Normal mental status. No focal deficit. Cranial nerves II through XII are grossly intact. No headache, no double vision or headache. SKIN: Not dry. Intact. Turgor - normal. LYMPHATIC: No palpable lymph nodes/no lymphedema. MUSCULOSKELETAL: Normal joints with no swelling. Muscle tone is normal. LABS: Hemoglobin 10.2, hematocrit 30, WBC 10,700, normal differential. Creatinine 2.5 , BUN 33, potassium 5.2. ASSESSMENT: 1. BORDERLINE CK-MB WITH EKG WHICH WAS REVIEWED FOR OLD SINUS RHYTHM, NO ACUTE CHANGES WITH NO SYMPTOMS OF CORONARY INSUFFICIENCY. LIKELY SOURCE NONCARDIAC. 2. ACUTE BRONCHITIS WITH CHRONIC LUNG DISEASE. 3. HYPERTENSION. 4. DJD SPINE. RECOMMENDATIONS: 1. Echocardiogram done which showed normal LV contractility, aortic regurg noted. The patient's echocardiogram is practically unchanged from the one that was done a couple of years ago. 2. The patient continues to be on monitor. 3. Question is raised on chest x-ray about pulmonary vascular congestion but at the present time, the patient doesn't show any pulmonary vascular congestion or any evidence of congestive heart failure. PLAN: 1. Continue to monitor the patient. I don't think that the patient's CK-MB is from myocardial infarction. CONDITION: Stable. Thanks for referral. SHAY
--- NOTE | 2018-02-13 09:54 | DI ---
EXAM: CHEST FRONTAL AND LATERAL VIEWS HISTORY: Hypoxia, follow-up. COMPARISON: 02/10/2018 FINDINGS: Stable cardiomegaly. Hiatal hernia. Atherosclerotic disease. Mild central vascular edwardo estion similar to that previously seen. Improving basilar densities. No noticeable interstitial ying ma or consolidated pneumonia. No pneumothorax IMPRESSION: Stable cardiomegaly and mild central vascular congestion. Resolved basilar densities.
[2018-02-13] MEDS ORDERED: COREG PO STA (10:03)
--- NOTE | 2018-02-13 14:26 | CONS ---
DATE OF SERVICE: 02/11/18 CONSULT FOLLOWUP SUBJECTIVE: 82 year old white male seen on Consultation for hypoxemia with respiratory failure. The patient probably had combination of maybe mild CHF along with acute bronchitis with chronic lung disease. The patient's condition has improved remarkably. His oxygen saturation on room air is more than 90%. REVIEW OF SYSTEMS: CONSTITUTIONAL: No night sweats. No fatigue, malaise, lethargy. No fever or chills. HEENT: Eyes: No visual changes. No eye pain. No eye discharge. ENT: No runny nose. No epistaxis. No sinus pain. No sore throat. No odynophagia. No ear pain. No congestion. Hard of hearing. RESPIRATORY: Still has cough with congestion. No hemoptysis. Patient has symptoms of congestion with cough with yellowish sputum production for couple of weeks. CARDIOVASCULAR: No angina symptoms. No CHF symptoms. No atypical chest pain for CAD. No palpitations. No shortness of breath. GASTROINTESTINAL: No abdominal pain. No nausea or vomiting. No diarrhea or constipation. No hematemesis. No hematochezia. GENITOURINARY: No urgency. No frequency. No dysuria. No hematuria. No obstructive symptoms. No discharge. No pain. No significant abnormal bleeding. MUSCULOSKELETAL: No musculoskeletal pain. No joint swelling. No arthritis. NEUROLOGICAL: No headache. No neck pain. No syncope. No seizures. No dizziness. PSYCHIATRIC: Not anxious. No depression. No suicidal thoughts. No homicidal thoughts. SKIN: No rash. No lesions. No wounds. ENDOCRINE: No unexplained weight loss. No weight gain. HEMATOLOGIC/LYMPHATIC: No anemia. No purpura. No petechiae. No prolonged or excessive bleeding. No palpable lymph nodes. PHYSICAL EXAMINATION: GENERAL: The patient is oriented to time, place and person. VITALS: Temperature 97.9, pulse 68, respiratory rate 24, blood pressure 127/72 and pulse ox 99% on room air. HEENT: Head normocephalic, atraumatic. Eyes: Extraocular muscles are intact. Pupils are equal, round and reactive to light and accommodation. Ears: No lesions. Nose appeared normal. Throat: No exudate or erythema. NECK: Supple. No JVD, no carotid bruit. No lymphadenopathy or thyromegaly. LUNGS: Decreased breath sounds but clear to auscultation. Percussion note normal. Chest symmetrical. HEART: S1, S2, no S3. No murmurs. No cyanosis or clubbing. No ascites. Pulses: Dorsalis pedis and posterior tibial pulses +1 to +2 both sides. ABDOMEN: Soft. Nontender. Bowel sounds active. No CVA tenderness. No mass felt. EXTREMITIES: No edema. Full range of motion of all extremities, equal. NEUROLOGIC: No focal deficit. Cranial nerves II through XII are grossly intact. No headache, no double vision or headache. SKIN: Not dry. Intact. Turgor - normal. LYMPHATIC: No palpable lymph nodes/no lymphedema. MUSCULOSKELETAL: Normal joints with no swelling. Muscle tone is normal. LABS: Hgb 10.1, hct 31, creatinine 2, BUN 42. ASSESSMENT: 1. CK-MB is borderline high with no other evidence of acute myocardial event. 2. Acute bronchitis with respiratory failure seems to be improved remarkably with present management 3. Question of congestive heart failure which is possible with fluid overload with renal failure. The echo showed normal LV contractility with LVH. At present time the patient clinically doesn't have any CHF. RECOMMENDATIONS: 1. ABG on room air 2. BNP repeat 3. Discontinue hydrochlorothiazide 4. IV Lasix QAM 5. Scheduling for Dobutamine Stress Echo probably next week, discussed with the patient and he is agreeable 6. Lipid profile CONDITION: Stable. MTDD
--- NOTE | 2018-02-13 14:46 | CONS ---
DATE OF SERVICE: 02/12/18 CONSULT FOLLOWUP SUBJECTIVE: The patient was seen and examined today. The patient is oriented to time, place and person. He is still mildly short of breath. The patient has acute bronchitis with chronic lung disease. His LV function is normal by echocardiogram. REVIEW OF SYSTEMS: CONSTITUTIONAL: No night sweats. No fatigue, malaise, lethargy. No fever or chills. HEENT: Eyes: No visual changes. No eye pain. No eye discharge. ENT: No runny nose. No epistaxis. No sinus pain. No sore throat. No odynophagia. No ear pain. No congestion. RESPIRATORY: No cough, no congestion. No hemoptysis. CARDIOVASCULAR: No angina symptoms. No CHF symptoms. No atypical chest pain for CAD. No palpitations. No shortness of breath. GASTROINTESTINAL: No abdominal pain. No nausea or vomiting. No diarrhea or constipation. No hematemesis. No hematochezia. GENITOURINARY: No urgency. No frequency. No dysuria. No hematuria. No obstructive symptoms. No discharge. No pain. No significant abnormal bleeding. MUSCULOSKELETAL: No musculoskeletal pain. No joint swelling. No arthritis. NEUROLOGICAL: No headache. No neck pain. No syncope. No seizures. No dizziness. PSYCHIATRIC: Not anxious. No depression. No suicidal thoughts. No homicidal thoughts. SKIN: No rash. No lesions. No wounds. ENDOCRINE: No unexplained weight loss. No weight gain. HEMATOLOGIC/LYMPHATIC: No anemia. No purpura. No petechiae. No prolonged or excessive bleeding. No palpable lymph nodes. PHYSICAL EXAMINATION: HEENT: Head normocephalic, atraumatic. Eyes: Extraocular muscles are intact. Pupils are equal, round and reactive to light and accommodation. Ears: No lesions. Nose appeared normal. Throat: No exudate or erythema. NECK: Supple. No JVD, no carotid bruit. No lymphadenopathy or thyromegaly. LUNGS: Decreased breath sounds with few wheeze. Percussion note normal. Chest symmetrical. HEART: S1, S2, no S3. No murmurs. No cyanosis or clubbing. No ascites. Pulses: Dorsalis pedis and posterior tibial pulses +1 to +2 both sides. ABDOMEN: Soft. Nontender. Bowel sounds active. No CVA tenderness. No mass felt. EXTREMITIES: No edema. Full range of motion of all extremities, equal. NEUROLOGIC: No focal deficit. Cranial nerves II through XII are grossly intact. No headache, no double vision or headache. SKIN: Not dry. Intact. Turgor - normal. LYMPHATIC: No palpable lymph nodes/no lymphedema. MUSCULOSKELETAL: Normal joints with no swelling. Muscle tone is normal. LABS: Chest x-ray is unchanged showing vascular congestion which I doubt has any correlation with congestive heart failure as patient does not have any symptoms of CHF at all. The patient has been on Lasix. LV functions are abnormal by stable. Echo showed normal LV function. RECOMMENDATIONS: 1. Continue the same treatment. 2. The patient's blood pressure is somewhat borderline. We will change Toprol to Coreg because of his chronic lung problems. We put him on 12.5mg twice a day. 3. We will discontinue Metoprolol 4. We will increase Coreg to 25mg twice a day depending upon his blood pressure. 5. We will do a PFT. Changes in the medications discussed with the patient and will discuss with attending. CONDITION: Stable. MTDD
[2018-02-13 15:36] VITALS: BP 139/83; TEMP 97.5
--- NOTE | 2018-02-16 14:42 | CONS ---
DATE OF SERVICE: 02/13/18 CONSULT FOLLOWUP SUBJECTIVE: The patient was seen and examined today. His cardiovascular status is stable. His blood pressure still on the upper limit. We increased the dose of Coreg 25mg twice a day. He has been off of Metoprolol. His bronchitis with respiratory failure seems to have improved. His lipid profile was normal. MTDD
--- NOTE | 2018-04-06 13:25 | HP ---
DATE OF SERVICE: 02/09/18 CHIEF COMPLAINT: Cough, hoarseness, sensation of not able to get enough air and weakness. The patient had cold symptoms about three days prior to presentation to the emergency room beginning with cough and then hoarseness and sensation of not able to get enough air and weakness. HISTORY OF PRESENT ILLNESS: The patient experienced upper respiratory symptoms, cough followed by hoarseness and sensation of not able to get enough air plus weakness. He presented to the emergency room. His blood pressure was 94/58, temperature 99.1 , pulse 110, respiratory rate 20, oxygen saturation 91, 225 lbs, 5'10", BMI 32.3. The patient after workup in the emergency room was felt to need admission and was then admitted. The patient had bilateral Doppler studies of both lower extremities because of elevated D. dimer but the studies are negative. The patient EGFR is markedly low at 25 so no contrast studies were done for the lung. The chest CT of the lung without contrast however was unremarkable or no acute processes. PAST PERSONAL HISTORY: Right inguinal hernia repair, hemorrhoidectomy, removal of cyst in the groin and removal of cyst on the back several years ago. The patient has history of bronchitis and also benign prostatic hypertrophy with some urinary symptoms on Flomax, FAMILY HISTORY: Mother had diabetes mellitus, chronic leg cellulitis. Sister had malignancy, brother had diabetes mellitus plus hypertension. MEDICATIONS: (prior to this admission) Losartan 50 mg twice a day Flomax 0.4 mg daily Gabapentin 100 mg three times a day Hydrocodone/APAP 5/325 one tablet every 5 hours p.r.n. Omeprazole 20 mg capsule daily p.r.n. ALLERGIES: NKDA SOCIAL HISTORY: The patient is and resides with his . He does not smoke any cigarettes or use any tobacco products. No alcoholic beverages. REVIEW OF SYSTEMS: CONSTITUTIONAL: The patient has no chills, low grade fever, some fatigue. REHABILITATION ASSISTANT: The patient has fatigue otherwise no ataxia, no syncopal episode, no seizure disorder. VISUAL: Negative. AUDITORY: Hearing is decreased. Wears a hearing aid. No pain or drainage. RESPIRATORY: The patient has cough and sensation of not getting enough air with hoarseness. No hemoptysis. CARDIOVASCULAR: Denies any chest pain, no palpitations or diaphoresis. GASTROINTESTINAL: The patient's appetite has decreased during this episode but no dysphagia. No abdominal pain. No change in bowel habits. GENITOURINARY: The patient has frequency but no dysuria. The patient had some hesitation previously but that has improved with the medication. MUSCULOSKELETAL: The patient does have back pain and had been to a neurosurgeon and no surgical intervention. He was informed that he would just need to take the pain medication. ENDOCRINE: Negative. INTEGUMENT: Denies any rash, pruritus or ecchymosis. HEMATOLOGIC: No history of prolonged bleeding or spontaneous bleeding. No spontaneous ecchymosis. PSYCHIATRIC: Affect is normal. PHYSICAL EXAMINATION: GENERAL: 82-year-old male admitted to the hospital via the emergency room because of cough, hoarseness, fatigue and sensation of not able to get enough breath with moderately severe hypoxemia, oxygen saturation 91. WBC elevated. VITAL SIGNS: Temperature 99.1, pulse 110, blood pressure 94/58, oxygen saturation 91 on room air, respiratory rate 20. Height 5'10, Weight 225 lbs. The patient however when he was weighed on the floor now weighed 231 lbs, 7.76 ozs. Again, this had always been my observation that there is a difference in weight between the emergency room and also on the floor itself. HEAD: Unremarkable. Scalp- no active dermatitis. Face is symmetrical and equal with no facial weakness. No significant tenderness to palpation and/or pressure in the frontal or maxillary sinus areas. EYES: Pupils equal/reactive to light and round. Conjunctivae slightly pale. Sclerae not icteric. MOUTH: Unremarkable. Throat - no inflammation. THROAT: No inflammation or tumors. NECK: No masses. No bruit. No adenopathies. CHEST: Symmetrical and equal with good expansion. LUNGS: Breath sounds are heard on both sides, diminished with rales in both lung ruth, more on the right base. HEART: Audible and regular with good tones. No murmurs. ABDOMEN: Soft with no remarkable tenderness. No guarding. Bowel sounds are active. No masses palpable. LOWER EXTREMITIES: Symmetrical and equal with 2+ edema. UPPER EXTREMITIES: Symmetrical and equal. ASSESSMENT: 1. BILATERAL BRONCHITIS. 2. RESPIRATORY FAILURE. 3. HYPERTENSION CONTROLLED. 4. BENIGN PROSTATIC HYPERTROPHY ON MEDICATION. 5. CHRONIC LUMBAR PAIN ON NARCOTIC MEDICATION. 6. HISTORY OF COLONOSCOPY/ENDOSCOPY DONE. TIME SPENT: GREATER THAN 65 MINUTES MTDD
--- NOTE | 2018-04-08 14:52 | DS ---
DATE OF SERVICE: 02/13/18 PATIENT IDENTIFICATION: 82-year-old male presented to the emergency room because of cold symptoms three days prior to presentation consisting of cough, hoarseness, sensation of inability to take enough air and fatigue or weakness. The patient' s workup in the emergency room showed moderately severe anemia, probably mixed in origin with mild leukocytosis, 14,000 WBC. D. dimer was elevated to 700 but the Doppler studies of both lower extremities were negative for DVT. Chest CT without contrast was done showing no acute processes. There might be some mucus in the trachea. The patient's EGFR was markedly low and the emergency room physician was concerned about injecting a contrast. The patient was then admitted because of rales on both lung ruth which was not present previously, the hypoxemia, leukocytosis and fatigue. The patient had rales on both lung ruth initially on admission, more on the right side and they are fine and moist rales. Audible with good tones. Sputum culture showed normal angelica. Blood cultures were negative after five days. Gram stain of sputum showed 2+ gram positive cocci and fungal elements not present. No WBC. The patient is receiving Moxifloxacin 400 mg intravenously daily. He also is receiving Lovenox 60 mg subcutaneously daily, intravenous fluids consisting of NS initially to 1/2 Saline with Dextrose plus potassium plus MVI. Home medications were instituted during this hospitalization. He also did receive Solu-Cortef 50 mg IV q.6hr. Previous to that was Hydrocortisone, also Solu-Cortef 250 q.6. The patient's condition had improved as well as his wellbeing. Repeat chest x-ray done on 02/13/18 before discharge showed stable cardiomegaly and mild central vascular congestion, resolved basilar densities. Cardiology consultation was also requested and the chemical compounder helper did perform an echocardiogram showing left ventricular ejection fraction of 63%. The patient on discharge alert, ambulatory, feeling well and feeling stronger. New medications are Carvedilol 12.5 mg twice daily, Moxifloxacin 400 mg daily for the next three days. Resume his previous medication of Gabapentin, Hydrocodone, Losartan, Omeprazole, Dilantin and Flomax. The patient's repeat arterial blood gases showed marked improvement with oxygen saturation at 97, pH 7.355, pc02 30.9, p02 92%, FI02 21. This was done 02/11/18. The patient is to see me 02/17/18 at the office and before if there are any concerns. FINAL DIAGNOSES: 1. ACUTE BRONCHITIS, IMPROVED 2. MODERATE HYPOXEMIA SECONDARY TO #1 3. CHRONIC KIDNEY DISEASE, STAGE IV 4. ELEVATED BMI 5. HISTORY OF HYPERTENSION 6. HISTORY OF CHRONIC LUMBAR PAIN ON MAINTENANCE NARCOTIC ANALGESIC MEDICATION PLAN: 1. No neurological recommendations for the back problems. TIME SPENT: GREATER THAN 30 MINUTES MTDD
== END 2018-02-13 16:30 | disposition home or self-care (01) | DRG 202 ==
LOC: ED 09:13 → MEDSURG B 13:07
PROVIDERS: ADMIT General Practice; ATTEND General Practice
DX: J40 Bronchitis, not specified as acute or chronic (principal); N18.4 Chronic kidney disease, stage 4 (severe); R06.2 Wheezing; J06.9 Acute upper respiratory infection, unspecified; R09.81 Nasal congestion; R53.81 Other malaise; B34.9 Viral infection, unspecified; N19 Unspecified kidney failure; E87.5 Hyperkalemia; R09.02 Hypoxemia
CPT/HCPCS: 36415; 80053; 80061; 82550; 82553; 82803; 83605; 83880; 84145; 84439; 84443; 84484; 85025; 85379; 85610; 85730; 87040; 87070; 87205; 87502; 87651; 87801; 93005; 93010; 94640; 96374; 99223; 99231; 99232; 99284

== ENCOUNTER 2018-05-29 20:09 | Emergency (ER) ==
[2018-05-29 20:13] VITALS: BP 188/83; TEMP 97.5; BMI 33.0
[2018-05-29] MEDS ORDERED: MORPHINE 2 MG/ML SYRINGE IVP STA (20:29)
[2018-05-29] MEDS ORDERED: ZOFRAN 4 MG/2 ML IVP STA (20:29)
[2018-05-29] MEDS ORDERED: DILAUDID 0.5 MG/0.5 ML SYRINGE IVP STA (21:35)
--- NOTE | 2018-05-29 22:02 | CT ---
EXAM: CT scan of the abdomen and pelvis without contrast HISTORY: Abdominal pain TECHNIQUE: Helical imaging of the abdomen and pelvis was performed without contrast. 3 mm thin axia l images and coronal and sagittal reconstructions were provided for interpretation. Comparison 11/06/2016. FINDINGS: The liver, spleen, pancreas, adrenal glands and kidneys appear normal. The proximal urete rs are normal size. The small and large bowel loops are normal caliber. There is no free air. No r etroperitoneal abnormalities are seen. There is a normal appearance of the appendix. The helical images obtained through the pelvis demonstrate a normal appearance of the rectum, urinary bladder. There is no free fluid seen within the pelvis. Diverticula are seen within the sigmoid co rochelle without acute inflammation. Lung bases are clear. No lytic or blastic lesions are seen within t he osseous structures. A moderate sized hiatal hernia is again seen. IMPRESSION: There is no bowel obstruction or acute inflammatory change seen within the abdomen and p delaney.. Diverticular disease of the sigmoid colon without acute inflammation.
[2018-05-29] MEDS ORDERED: ROCEPHIN 1 GM in SODIUM CHLORIDE 50 ML IV STA (22:32)
--- NOTE | 2018-05-29 22:35 | ED.PDOC ---
General ED Provider: Dr. COREEN TOWNSEND-ER Chief Complaint: Abdominal Pain Stated Complaint: i was hurting Time Seen by Physician: 20:10 Mode of Arrival: Walk-In Information Source: Patient, Family Exam Limitations: No limitations [facility] Nursing and Triage Documentation Reviewed and Agree: Yes Does patient meet sepsis criteria?: No System Inflammatory Response Syndrome: Not Applicable Sepsis Protocol: For patient's 13 years and over: Temp is 96.8 and below OR 101 and greater Pulse >90 BPM Resp >20/minute Acutely Altered Mental Status Are patient's symptoms suggestive of a new infection, such as: -Pneumonia -Skin, Soft Tissue -Endocarditis -UTI -Bone, Joint Infection -Implantable Device -Acute Abdominal Infection -Wound Infection -Meningitis -Blood Stream Catheter Infection -Unknown GI Complaint Exam - Abdominal Pain Complaint/Exam Onset: Gradual Duration: 24hrs Symptoms Are: Still present Initial Severity: Mild Current Severity: Mild Location of Pain: Suprapubic Character: Reports: Dull, Aching Associated Signs and Symptoms: Reports: Decreased urine output Abdominal Findings: Present: None Differential Diagnoses: UTI Quality Indicator For Non-Traumatic Chest Pain/Syncope: EKG Performed Review of Systems - Review Of Systems Constitutional: Reports: No symptoms Eyes: Reports: No symptoms Ears, Nose, Mouth, Throat: Reports: No symptoms Respiratory: Reports: No symptoms Cardiac: Reports: No symptoms GI: Reports: Abdominal pain, Nausea : Reports: Dysuria, Pain, Urgency Musculoskeletal: Reports: No symptoms Skin: Reports: No symptoms Neurological: Reports: No symptoms Endocrine: Reports: No symptoms Hematologic/Lymphatic: Reports: No symptoms All Other Systems: Reviewed and Negative Past Medical History - Past Medical History Previously Healthy: Yes Endocrine: Reports: None Cardiovascular: Reports: Hypertension Respiratory: Reports: None Hematological: Reports: None Gastrointestinal: Reports: GERD Genitourinary: Reports: CKD Neuro/Psych: Reports: None Musculoskeletal: Reports: Other (degen disk dz of lumbar spine) Cancer: Reports: None - Surgical History General Surgical History: Reports: None - Family History Family History: Reports: Unknown - Social History Smoking Status: Former smoker Hx Substance Use: No Alcohol Screening: None - Immunizations Tetanus Shot up to Date: Yes Influenza Vaccine within 12 Months: No Pneumococcal Vaccine up to Date: No Physical Exam - Physical Exam Appearance: Well-appearing, No pain distress, Well-nourished Eyes: FABI, EOMI, Conjunctiva clear ENT: Ears normal, Nose normal, Oropharynx normal Neck: Supple Respiratory: Airway patent, Breath sounds clear, Breath sounds equal, Respirations nonlabored Cardiovascular: RRR, Pulses normal, No rub, No murmur GI/: Soft, Nontender, No masses, Bowel sounds normal, No Organomegaly Musculoskeletal: Normal strength, ROM intact, No edema, No calf tenderness Skin: Warm, Dry, Normal color Neurological: Sensation intact, Motor intact, Reflexes intact, Cranial nerves intact, Alert, Oriented Psychiatric: Affect appropriate, Mood appropriate Interpretation - Radiology Interpretation Radiology Interpretation By: Radiologist Radiology Results: Negative Exam Interpreted: CT Scan - EKG Interpretation Time of EKG #1: 22:35 Rate: Normal Rhythm: Sinus Ectopy: None [place]: NL Interpretation: nsr Re-Evaluation - Re-Evaluation Time of Re-Evaluation: 22:35 Status: Improved Vital Signs Stable: Yes Pain Level: 0 Appearance: NAD Lungs: Clear Skin: Warm and Dry Neuro: Alert and Oriented X3 CV: RRR Critical Care Note - Critical Care Note Total Time (mins): 0 Course - Course Hematology/Chemistry: 05/29/18 20:30 05/29/18 20:30 Orders, Labs, Meds: Lab Review 05/29/18 05/29/18 05/29/18 20:30 20:30 20:30 WBC 10.51 H RBC 3.94 L Hgb 11.7 L Hct 36.5 L MCV 92.6 MCH 29.7 MCHC 32.1 RDW Coeff of Lan 13.0 Plt Count 226 Immature Gran % (Auto) 0.4 Neut % (Auto) 74.6 Lymph % (Auto) 15.8 [place] % (Auto) 5.6 Eos % (Auto) 3.2 Baso % (Auto) 0.4 Immature Gran # (Auto) 0.0 Neut # (Auto) 7.8 H Lymph # (Auto) 1.7 [place] # (Auto) 0.6 Eos # (Auto) 0.3 Baso # (Auto) 0.0 ESR 29 H Sodium 138.4 Potassium 5.19 H Chloride 105.2 Carbon Dioxide 25.4 Anion Gap 12.99 BUN 27.8 H Creatinine 1.63 H Estimated GFR (MDRD) 41.00 BUN/Creatinine Ratio 17.05 Glucose 125.7 H Calcium 8.74 Total Bilirubin 0.66 AST 28.5 ALT 18.2 Alkaline Phosphatase 65.1 Total Creatine Kinase 90.0 Troponin I < 0.012 Total Protein 7.70 Albumin 4.58 Globulin 3.12 Albumin/Globulin Ratio 1.46 Amylase 77.7 Lipase 197.2 Urine Color Urine Clarity Urine pH Ur Specific [employer] Urine Protein Urine Glucose (UA) Urine Ketones Urine Blood Urine Nitrite Urine Bilirubin Urine Urobilinogen Ur Leukocyte Esterase Urine Microscopic RBC Urine Microscopic WBC Ur Squamous Epith Cells Urine Bacteria Urine Mucus 05/29/18 22:13 WBC RBC Hgb Hct MCV MCH MCHC RDW Coeff of Lan Plt Count Immature Gran % (Auto) Neut % (Auto) Lymph % (Auto) [place] % (Auto) Eos % (Auto) Baso % (Auto) Immature Gran # (Auto) Neut # (Auto) Lymph # (Auto) [place] # (Auto) Eos # (Auto) Baso # (Auto) ESR Sodium Potassium Chloride Carbon Dioxide Anion Gap BUN Creatinine Estimated GFR (MDRD) BUN/Creatinine Ratio Glucose Calcium Total Bilirubin AST ALT Alkaline Phosphatase Total Creatine Kinase Troponin I Total Protein Albumin Globulin Albumin/Globulin Ratio Amylase Lipase Urine Color [place] Urine Clarity Cloudy Urine pH 5.0 Ur Specific [employer] 1.025 Urine Protein 1+ Urine Glucose (UA) Negative Urine Ketones Trace Urine Blood Negative Urine Nitrite Positive Urine Bilirubin 1+ Urine Urobilinogen 2.0 Ur Leukocyte Esterase 1+ Urine Microscopic RBC 2-5 Urine Microscopic WBC 30-50 Ur Squamous Epith Cells 2-5 Urine Bacteria 2+ Urine Mucus 1+ Orders Category Date Time Status EKG-(ED ONLY) Stat CARDIO 05/29/18 20:11 Completed ED IV/MEDIPORT/POWERPORT .ONCE EMERGENCY 05/29/18 20:11 Active AMYLASE Stat LAB 05/29/18 20:30 Completed CBC W/ AUTO DIFF Stat LAB 05/29/18 20:30 Completed COMPREHENSIVE METABOLIC PANEL Stat LAB 05/29/18 20:30 Completed CREATINE KINASE Stat LAB 05/29/18 20:30 Completed ESR Stat LAB 05/29/18 20:30 Completed LIPASE Stat LAB 05/29/18 20:30 Completed TROPONIN I Stat LAB 05/29/18 20:30 Completed URINALYSIS C & S IF INDICATED Stat LAB 05/29/18 22:13 Completed URINE CULTURE Stat LAB 05/29/18 22:13 Received 0.9 % Sodium Chloride [Saline Flush] MEDS 05/29/18 20:10 Ordered 1 syr IVF PRN PRN Ceftriaxone Sodium [Rocephin] 1 gm MEDS 05/29/18 22:32 Active 0.9 % Sodium Chloride [Sodium Chloride] 50 ml IV ONCE Hydromorphone HCl [Dilaudid 0.5 mg/0.5 ml Syringe] MEDS 05/29/18 21:35 Discontinued 0.5 mg IVP ONCE STA Morphine Sulfate [Morphine 2 mg/ml Syringe] MEDS 05/29/18 20:29 Discontinued 2 mg IVP ONCE STA Ondansetron HCl/Pf [Zofran 4 mg/2 ml] MEDS 05/29/18 20:29 Discontinued 4 mg IVP ONCE STA CT ABDOMEN/PELVIS WO CONTRAST Stat RADS 05/29/18 20:29 Completed Medications Generic Name Dose Route Start Last Admin Trade Name Freq PRN Reason Stop Dose Admin Ceftriaxone Sodium 1 gm/ 50 mls @ 75 mls/hr 05/29/18 22:32 Sodium Chloride IV 05/29/18 23:11 ONCE STA Sodium Chloride 1 syr 05/29/18 20:10 Saline Flush IVF PRN PRN To flush IV Discontinued Medications Generic Name Dose Route Start Last Admin Trade Name Freq PRN Reason Stop Dose Admin Hydromorphone HCl 0.5 mg 05/29/18 21:35 05/29/18 21:37 Dilaudid 0.5 Mg/0.5 Ml Syringe IVP 05/29/18 21:36 0.5 mg ONCE STA Administration Morphine Sulfate 2 mg 05/29/18 20:29 05/29/18 20:40 Morphine 2 Mg/Ml Syringe IVP 05/29/18 20:30 2 mg ONCE STA Administration Ondansetron HCl 4 mg 05/29/18 20:29 05/29/18 20:41 Zofran 4 Mg/2 Ml IVP 05/29/18 20:30 4 mg ONCE STA Administration Vital Signs: Temp Pulse Resp BP Pulse Ox 05/29/18 20:09 97.5 F L 74 20 188/83 H 94 L Departure - Departure Time of Disposition: 22:35 Disposition: HOME SELF-CARE Discharge Problem: Prostatitis Qualifiers: Prostatitis type: acute Qualified Code(s): N41.0 - Acute prostatitis Instructions: Prostatitis (ED) Condition: Fair Pt referred to PMD for follow-up: Yes IPMP verified?: No Additional Instructions: augmentin 500mg bid x 14 days---drink plenty of water===f/u with dr jackson next week urine culture Allergies/Adverse Reactions: Allergies No Known Drug Allergies Allergy (Verified 02/09/18 09:22) Home Medications: Ambulatory Orders Gabapentin 100 mg PO TID 08/11/14 Losartan Potassium 50 mg PO BID 08/11/14 Tamsulosin HCl 0.4 mg PO DAILY 08/11/14 Losartan Potassium [Cozaar] 25 mg PO BID 05/29/18 Disposition Discussed With: Patient, Family
[2018-05-29] MEDS ORDERED: ROCEPHIN ONE (22:36)
== END 2018-05-29 23:30 | disposition home or self-care (01) ==
LOC: ED 20:09
DX: N41.0 Acute prostatitis (principal); I10 Essential (primary) hypertension; N18.9 Chronic kidney disease, unspecified; Z79.899 Other long term (current) drug therapy
CPT/HCPCS: 36415; 80053; 81001; 82150; 82550; 83690; 84484; 85025; 85651; 87086; 87186; 93005; 93010; 96365; 96375; 99284

== ENCOUNTER 2018-06-23 10:54 | Outpatient (POV) | END 2018-06-23 17:00 | LOC: OUTPT 10:54 | PROVIDERS: ATTEND Otolaryngology | DX: H91.90 Unspecified hearing loss, unspecified ear (principal) | CPT/HCPCS: 92557 ==

== ENCOUNTER 2018-07-13 08:12 | Outpatient (CLI) | payer OTHER | END 2018-07-13 08:13 | disposition home or self-care (01) | LOC: RHC-LAB 08:12 | PROVIDERS: ATTEND General Practice | DX: E78.5 Hyperlipidemia, unspecified (principal); E61.1 Iron deficiency; I10 Essential (primary) hypertension; Z79.899 Other long term (current) drug therapy | CPT/HCPCS: 36415; 80053; 80061; 81001; 85025 ==

== ENCOUNTER 2018-07-30 05:23 | Outpatient (CLI) | END 2018-07-30 05:35 | disposition short-term general hospital (02) | LOC: AMBL 05:23 | PROVIDERS: ATTEND Family Medicine | DX: R29.810 Facial weakness (principal); R53.1 Weakness; R13.10 Dysphagia, unspecified; R47.81 Slurred speech ==